=== PATIENT | male | born 1980 | race Caucasian/White ===

== ENCOUNTER 2018-03-06 17:54 | Emergency (ER) | payer BC ==
[2018-03-06 18:02] VITALS: BP 148/73
[2018-03-06] MEDS ORDERED: EMTRICITABINE/TENOFOVIR 200-300 MG TABLET PO ONE (18:30)
[2018-03-06 18:32] LABS: ABSOLUTE BASOPHILS # (AUTO) 0.1 10^3/uL (0.0-0.2); ABSOLUTE EOSINOPHILS # (AUTO) 0.5 10^3/uL (0.0-0.6); ABSOLUTE LYMPHOCYTES (AUTO) 2.2 10^3/uL (0.5-4.7); ABSOLUTE MONOCYTES (AUTO) 0.6 10^3/uL (0.1-1.4); ABSOLUTE NEUT (AUTO) 5.4 10^3/uL (1.7-8.2); BASOPHILS % (AUTO) 0.7 % (0-2); EOSINOPHILS % (AUTO) 5.8 % (0-6); HEMATOCRIT 41.8 % (37.9-51.0); HEMOGLOBIN 14.8 g/dL (13.5-17.0); LYMPHOCYTES % (AUTO) 24.6 % (13-45); MEAN CORPUSCULAR HEMOGLOBIN 30.9 pg (27.0-33.4); MEAN CORPUSCULAR HGB CONC 35.3 g/dL (32.0-36.0); MEAN CORPUSCULAR VOLUME 88 fl (80-97); MONOCYTES % (AUTO) 6.9 % (3-13); PLATELET COUNT 176 10^3/uL (150-450); RED BLOOD COUNT 4.78 10^6/uL (4.35-5.55); RED CELL DISTRIBUTION WIDTH 12.5 % (11.5-14.0); TOTAL CELLS COUNTED % (AUTO) 100 %; WHITE BLOOD COUNT 8.8 10^3/uL (4.0-10.5)
--- NOTE | 2018-03-06 18:34 | ER Document Report ---
ED GI/ - General Chief Complaint: STD Exposure Stated Complaint: STD CHECK Time Seen by Provider: 03/06/18 17:57 Mode of Arrival: Ambulatory Information source: Patient TRAVEL OUTSIDE OF THE [place] IN LAST 30 DAYS: No - HPI Patient complains to provider of: Other - exposure to body fluids Onset: Yesterday Quality of pain: No pain Notes: 03/06/18 19:28 Patient is a 37-year-old male who comes to the emergency room, requesting postexposure prophylaxis, patient states he had protected intercourse with a one -time partner yesterday evening, he engaged in receptive anal intercourse, his partner used a condom during intercourse the patient is concerned that in between intercourse sessions patient changed condom and may have had fluid contact with his hands prior to putting on a new condom, patient denies any injury, no rectal bleeding, otherwise healthy with no medical problems, HIV and hepatitis status of partner is unknown - Related Data Allergies/Adverse Reactions: No Known Allergies Allergy (Unverified 03/06/18 17:55) Past Medical History - General Information source: Patient - Social History Smoking Status: Current Some Day Smoker Chew tobacco use (# tins/day): No Frequency of alcohol use: Social Drug Abuse: None Family History: Reviewed & Not Pertinent Patient has suicidal ideation: No Patient has homicidal ideation: No Renal/ Medical History: Denies: Hx Peritoneal Dialysis Review of Systems - Review of Systems Constitutional: No symptoms reported EENT: No symptoms reported Cardiovascular: No symptoms reported Respiratory: No symptoms reported Gastrointestinal: No symptoms reported Genitourinary: No symptoms reported Male Genitourinary: See HPI Musculoskeletal: No symptoms reported Skin: No symptoms reported Hematologic/Lymphatic: No symptoms reported Neurological/Psychological: No symptoms reported -: Yes All other systems reviewed and negative Physical Exam - Vital signs Vitals: Temp Pulse Resp BP Pulse Ox 97.9 F 78 14 148/73 H 98 03/06/18 18:00 03/06/18 18:00 03/06/18 18:00 03/06/18 18:00 03/06/18 18:00 - Notes Notes: - General General appearance: Appears well, Alert In distress: None - HEENT Head: Normocephalic, Atraumatic Eyes: Normal Conjunctiva: Normal Extraocular movements intact: Yes Eyelashes: Normal Pupils: PERRL - Respiratory Respiratory status: No respiratory distress - Cardiovascular Rhythm: Regular - Abdominal Inspection: Normal - Back Back: Normal - Extremities General upper extremity: Normal inspection General lower extremity: Normal inspection - Neurological Neuro grossly intact: Yes Orientation: AAOx4 Yos[place]any Coma Scale Eye Opening: Spontaneous [place] Coma Scale Verbal: Oriented Yosvany Coma Scale Motor: Obeys Commands Yosvany Coma Scale Total: 15 - Psychological Associated symptoms: Normal affect, Normal mood - Skin Skin Temperature: Warm Skin Moisture: Dry Skin Color: Normal Course - Re-evaluation Re-evalutation: 03/06/18 19:31 I placed a call to the PEP hotline and spoke with Kusum who recommended a 28 day course of both Truvada and Tivicay, as well as two-week follow-up for repeat creatinine and LFTs, and 28 day follow-up for postexposure testing, also recommended various hepatitis B and hepatitis C testing, states there is 1.4% risk of HIV transmission if patient's partner was HIV positive Plan was discussed with patient, he was given prescriptions for both Truvada and Tivicay, advised to follow-up and return if symptoms worsen, patient acknowledges understanding and agreement with this plan - Vital Signs Vital signs: Temp Pulse Resp BP Pulse Ox 97.9 F 78 14 148/73 H 98 03/06/18 18:00 03/06/18 18:00 03/06/18 18:00 03/06/18 18:00 03/06/18 18:00 - Laboratory Result Diagrams: 03/06/18 18:18 03/06/18 18:18 Discharge - Discharge Clinical Impression: HIV exposure from body fluids Condition: Stable Disposition: HOME, SELF-CARE Instructions: Body Fluid Exposure ([facility]) Additional Instructions: Follow up with your primary care provider in one to 2 days. Return to the emergency room immediately if symptoms worsen or any additional concerns. Repeat lab work in 2 weeks to check for kidney and liver function. Repeat lab work in 28 days after completion of treatment for repeat exposure testing. Prescriptions: Dolutegravir Sodium [Tivicay] 50 mg PO DAILY #28 tablet Emtricitabine/Tenofovir [Truvada Tablet] 1 each PO DAILY #28 tablet Forms: Follow-Up Laboratory Testing Referrals: LOCALMD,NO [NO LOCAL MD] - Follow up as needed
[2018-03-06 18:47] LABS: ALANINE AMINOTRANSFERASE 29 U/L (21-72); ALBUMIN 4.6 g/dL (3.5-5.0); ALKALINE PHOSPHATASE 53 U/L (38-126); ANION GAP 15 (5-19); ASPARTATE AMINO TRANSFERASE 23 U/L (17-59); BILIRUBIN,DIRECT 0.2 mg/dL (0.0-0.4); BILIRUBIN,TOTAL 0.8 mg/dL (0.2-1.3); BLOOD UREA NITROGEN 20 mg/dL (7-20); CALCIUM 9.6 mg/dL (8.4-10.2); CARBON DIOXIDE 23 mmol/L (22-30); CHLORIDE 104 mmol/L (98-107); GLUCOSE 86 mg/dL (75-110); POTASSIUM 3.8 mmol/L (3.6-5.0); TOTAL PROTEIN 7.7 g/dL (6.3-8.2)
[2018-03-08 06:41] LABS: HEPATITIS A AB IGM Negative (Negative); HEPATITIS B CORE AB IGM Negative (Negative); HEPATITS B SURFACE ANTIGEN Negative (Negative)
[2018-03-08 09:18] LABS: HEPATITIS C VIRUS ANTIBODY <0.1 s/co ratio (0.0-0.9)
== END 2018-03-06 19:00 | disposition home or self-care (01) ==
LOC: ER 17:54
DX: Z20.6 Contact with and (suspected) exposure to human immunodeficiency virus [HIV] (principal); Z20.2 Contact with and (suspected) exposure to infections with a predominantly sexual mode of transmission; F17.200 Nicotine dependence, unspecified, uncomplicated
CPT/HCPCS: 36415; 80053; 80074; 85025; 86317; 86592; 86701; 86702; 86704; 86705; 86706; 87491; 87517; 87591; 99283